=== PATIENT | female | born 2000 | race African-American/Black ===

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

== ENCOUNTER 2018-05-13 01:21 | Emergency (ER) | payer OTHER ==
[2018-05-13] MEDS ORDERED: Lidocaine 1% w/Epinephrine 1:100K 30 ML VIAL ONE (01:49)
[2018-05-13] MEDS ORDERED: Triple Antibiotic Oint 1 GM Packet ONE (02:09)
== END 2018-05-13 02:35 | disposition home or self-care (01) ==
LOC: NAV ERS 01:21
DX: S01.81XA Laceration without foreign body of other part of head, initial encounter (principal); J45.909 Unspecified asthma, uncomplicated; W22.03XA Walked into furniture, initial encounter
CPT/HCPCS: 12011; J2001

== ENCOUNTER 2018-05-23 13:44 | Emergency (ER) | payer OTHER ==
[2018-05-23] MEDS ORDERED: Bacitracin Zinc 1 Packet ONE (13:59)
== END 2018-05-23 14:03 | disposition home or self-care (01) ==
LOC: NAV ERS 13:44
DX: S01.81XD Laceration without foreign body of other part of head, subsequent encounter (principal); J45.909 Unspecified asthma, uncomplicated